=== PATIENT | male | born 1970 | race Caucasian/White ===

== ENCOUNTER 2016-07-10 05:18 | Day surgery (SDC) | payer BC ==
[~2016-07-10] VITALS: Ht 185.4 cm; Wt 99.8 kg
[~2016-07-10 05:18] MED LIST: CLARITIN10 M3 PO
[2016-07-10 05:54] VITALS: BP 139/92
[2016-07-10 12:18] VITALS: BP 132/91
[2016-07-10 13:13] VITALS: BP 127/87
== END 2016-07-10 13:30 | disposition home or self-care (01) ==
LOC: SDC 05:18 → EDSTATUS 10:06 → 2SOUTH 10:06 → SDC 10:10
DX: J34.2 Deviated nasal septum (principal); J32.9 Chronic sinusitis, unspecified; J34.3 Hypertrophy of nasal turbinates; K21.9 Gastro-esophageal reflux disease without esophagitis
CPT/HCPCS: 88305; J0131; J0330; J0690; J1170; J2250; J2405; J2710; J3301; J7050